=== PATIENT | male | born 1955 | race Two or more races ===

== ENCOUNTER 2017-02-03 15:07 | Inpatient (IN) | payer SELFPAY ==
[~2017-02-03] VITALS: Ht 162.6 cm; Wt 66.7 kg
--- NOTE | ~2017-02-03 | DS ---
Unit #: [id number] #: [id number] Patient: CHINEDU ANTOINE [id number] [address] [address] [id number] I MR#: [id number] NAME: CHINEDU ANTOINE ROOM: 237 Age: 61 Sex: M Admission Date: 02/03/2017 : 1955 Discharge Date: 02/06/2017 Attending Physician: Tevin Mckeon M.D. Primary Care Physician: No Primary Care Physician DISCHARGE SUMMARY PRIMARY DIAGNOSES 1. Acute on chronic pancreatitis. 2. Diabetes mellitus type 2 with a pending hemoglobin A1C at the time of discharge. 3. Hyponatremia, mild. 4. Thrombocytopenia, mild. 5. Leukocytosis, not felt to be clinically significant at this time. 6. Dehydration, resolved. 7. Gallstones on imaging, not felt to be related to the patient's pancreatitis episodes. HOSPITAL COURSE Patient was admitted to the hospital, was seen in consultation with Dr. Valle with gastroenterology. Patient had imaging with a CT of the abdomen and pelvis, as well as an ultrasound of the gallbladder. Patient's lipase, at its highest, was 66 and trended down to 40 with conservative treatment. His CT scan, however, was markedly abnormal, as was his clinical exam suggesting that this patient could have fairly significant episodes of pancreatitis without as much elevation in lipase as might be expected in somebody who had not had multiple previous episodes. Gastroenterology has recommended that the patient eventually get endoscopic ultrasound with consideration of possible biopsy if needed, as well as a repeat CT scan in 4-6 weeks and close outpatient followup if possible. All of this may be difficult to impossible, as the patient is self pay. I have asked my office to attempt to get the patient referred to [facility] gastroenterology clinic to be seen some time in the next few months. DISCHARGE DISPOSITION Discharge disposition is to home. DISCHARGE DIET Discharge diet is a low-fat, diabetic diet. DISCHARGE ACTIVITY Discharge activity is ad sandeep. DISCHARGE STATUS Discharge status is stable. DISCHARGE FOLLOWUP Discharge followup is with [facility] 4 weeks and follow up with Unit #: [id number] #: [id number] Patient: CHINEDU ANTOINE [facility] in 4 to 8 weeks. DISCHARGE MEDICATIONS 1. Protonix 40 mg p.o. daily. 2. Lortab 5/325 - 1 tablet p.o. q.6 hours p.r.n. pain. 3. Metformin, unknown dose, unknown frequency. He may resume his metformin. Dictated by... Tevin Mckeon M.D. REBECCA/ulysses TD: 02/07/2017 08:15 JOB #: [id number] DISCHARGE SUMMARY Page 1 of 1 X Tevin Mckeon MD X DISCHARGE SUMMARY
--- NOTE | ~2017-02-03 | HP ---
Unit #: [id number] #: [id number] Patient: CHINEDU ANTOINE [id number] [address] [address] [id number] I MR#: [id number] NAME: CHINEDU ANTOINE ROOM: 22347 Age: 61 Sex: M Admission Date: 02/03/2017 : 1955 Attending Physician: Reyna Baker M.D. Primary Care Physician: No Primary Care Physician HISTORY AND PHYSICAL CHIEF COMPLAINT Acute on chronic pancreatitis. HISTORY This pleasant 61-year-old male from [place] with AODM, chronic gastritis, is admitted for acute on chronic pancreatitis. Patient states that while in [place] he was diagnosed with gastritis. He states that he was well until 2 days prior to admission when he developed nausea and vomiting with generalized abdominal pain. The abdominal pain was mainly in the upper abdomen radiating to his back. He states that his pain felt similar to his previously diagnosed gastritis. He does drink beer on the weekends but denies a history of excessive alcohol abuse. No previous known history of pancreatitis. Presented to this emergency department tonight where his pancreatic enzymes are mildly elevated. CT scan performs shows acute on chronic pancreatitis with extensive calcification and pseudocyst formation. There was a density noted in the gallbladder as well. He was bolused with IV fluids, given a GI cocktail, Pepcid and then Phenergan and morphine. PAST MEDICAL HISTORY 1. AODM. 2. History of gastritis diagnosed in [place]. ALLERGIES None. HOME MEDICATIONS Metformin. FAMILY HISTORY Negative for pancreatic or gallbladder disease. SOCIAL HISTORY The patient is originally from [place]. He is living with his family. He is a lifelong nonsmoker, does drink beer on the weekends but denies excessive alcohol consumption or history of alcohol abuse. REVIEW OF SYSTEMS Somewhat difficult to obtain due to language barrier. [employer] via our phone service was utilized. PHYSICAL EXAMINATION GENERAL: Pleasant, thin, 61-year-old male, currently in no acute Unit #: [id number] #: [id number] Patient: CHINEDU ANTOINE distress. VITAL SIGNS: Temperature 98.8, pulse 93, respirations 16, blood pressure 142/85. O2 saturation is 100% on room air. HEENT: Eyes PERRLA. Extraocular muscles are intact. Pharynx is benign with poor dentition. NECK: Supple without adenopathy or thyromegaly. CHEST: Clear. CARDIAC: Normal S1 and S2 without S3, S4 or murmur. ABDOMEN: Bowel sounds are present. Patient had upper abdominal pain, mainly in the epigastric area but also in the left and right upper quadrants without rebound, guarding. No definite hepatosplenomegaly or masses. EXTREMITIES: Without C, C or E. Pedal pulses are present. NEUROLOGIC EXAM: Patient is awake, alert, oriented. Cranial nerves are intact. Equal strength throughout. DIAGNOSTIC STUDIES LABORATORY: Admission labs - hematocrit is 50.1, white blood count is 13.4, normal platelet count. SMA-12 - glucose is 304, BUN 27, sodium 130, chloride 89, protein is 9. Amylase 94, lipase is 66. Urinalysis - 2+ protein, positive glucose. IMAGING: CT scan - acute on chronic pancreatitis with extensive calcification and pseudocyst formation. Gallbladder density noted. ASSESSMENT 1. Acute on chronic pancreatitis. Patient states that he was diagnosed with gastritis in [place] but has no known diagnosis in the past of pancreatitis. Denies heavy alcohol consumption. 2. AODM with hyperglycemia. 3. Mild dehydration. PLANS 1. Aggressive IV fluids and supportive treatment. 2. H2 blockers. 3. Sliding scale insulin. 4. Obtain gallbladder ultrasound and triglyceride levels along with repeat labs in the morning. 5. GI to see in consultation. 6. SCDs for DVT prophylaxis. Dictated by Jean Marie Morales/braulio TD: 02/04/2017 05:00 JOB #: [id number] Unit #: [id number] #: [id number] Patient: DEEPTHI MCCOYCHINEDU HISTORY AND PHYSICAL Page 1 of 1 X Reyna Baker MD HISTORY AND PHYSICAL
--- NOTE | ~2017-02-03 | CT4 ---
[facility] A Service of [facility] & [facility] RADIOLOGY TEXT RESULTS PATIENT: CHINEDU ANTOINE LOCATION: A 237- : 53 UNIT #: [id number] AGE: [address]: Tevin cMkeon MD SEX: M ORDER DR: [id number] [place], [place] [address] [id number] I MR#: [id number] Acc #: [id number] NAME: CHINEDU ANTOINE : 1955 SEX: M STUDY DATE/TIME: 02/03/2017 20:23 UNIT: [facility] ROOM: [facility] STUDY DESCRIPTION: CT Abd and Pelv Wo Cont Attending Physician: Tevin Mckeon M.D. Ordering Physician: Krishna Griffiths M.D. Primary Care Physician: No Primary Care Physician MEDICAL IMAGING REPORT This report is preliminary unless electronic signature is present EXAM CT abdomen and pelvis without contrast. HISTORY Vomiting since yesterday. History of chronic gastritis. Complains of epigastric pain. TECHNIQUE Axial images were performed through the abdomen and pelvis without contrast. Multiplanar reconstructed images were reviewed. This CT exam was performed with one or more of the following radiation dose reduction techniques: automatic exposure control, adjustment of mA and/or kV according to patient size, and iterative reconstruction. FINDINGS ABDOMEN: The lung bases unremarkable. The liver, spleen, and gallbladder appear normal. Pancreas is abnormal with diffuse pancreatic enlargement and peripancreatic inflammatory changes, as well as scattered coarse calcifications suggesting chronic pancreatitis. Several areas of decreased attenuation are seen within the pancreas, probably representing areas of pseudocyst formation. Questionable mild pancreatic ductal dilatation, though anatomic detail somewhat limited. No definite acute peripancreatic fluid collections. Probable pseudocyst with calcifications, tail of the pancreas. This measures up to 1.6 cm. Kidneys demonstrate bilateral renal cortical cysts. The adrenal glands are unremarkable. The stomach is moderately fluid distended. Small bowel and colon unremarkable. The appendix is normal. There are a few scattered colonic diverticula. PELVIS: Bladder and prostate appear normal. Osseous structures and extra abdominal soft tissues appear normal. [facility] A Service of [facility] & [facility] RADIOLOGY TEXT RESULTS PATIENT: CHINEDU ANTOINE LOCATION: [facility] 237- : 53 UNIT #: [id number] AGE: [address]: Tevin Mckeon MD SEX: M ORDER DR: IMPRESSION 1. Abnormal CT of the abdomen and pelvis demonstrating changes most compatible with acute on chronic pancreatitis with extensive pancreatic calcifications and multiple foci of decreased attenuation within the pancreas, most likely representing areas of pseudocyst formation, the largest seen in the tail of pancreas measuring about 1.6 cm. There is some mild peripancreatic inflammatory changes, again supporting acute on chronic pancreatitis. No evidence of ductal obstruction. 2. Not mentioned above is a small amount of density seen in the dependent portion of gallbladder suggesting small gallstones, but I doubt that this represents gallstone pancreatitis, as the patient has clearly evidence of more longstanding chronic pancreatitis. Dictated by... Rebeka Trevino M.D. THIS IS AN ELECTRONICALLY VERIFIED REPORT Rebeka Trevino M.D. at 02/05/2017 3:15 PM Sis TD: 02/04/2017 11:44 JOB #: [id number] MEDICAL IMAGING REPORT Page 1 of 1 COPY
--- NOTE | ~2017-02-03 | US67 ---
[facility] A Service of [facility] RADIOLOGY TEXT RESULTS PATIENT: CHINEDU ANTOINE LOCATION: [facility] : 53 UNIT #: [id number] AGE: [address]: Tevin Mckeon MD SEX: M ORDER DR: [id number] [place], [place] [address] [id number] I MR#: [id number] Acc #: [id number] NAME: CHINEDU ANTOINE : 1955 SEX: M STUDY DATE/TIME: 02/04/2017 8:43 UNIT: [facility] ROOM: [facility] STUDY DESCRIPTION: US Gallbladder Attending Physician: Tevin Mckeon M.D. Ordering Physician: Aye Foley Primary Care Physician: Primary Care Physician No MEDICAL IMAGING REPORT This report is preliminary unless electronic signature is present EXAM Gallbladder ultrasound 02/04/2017 HISTORY Two day history of right upper quadrant pain. Diabetes. FINDINGS Limited survey images of the pancreas are unremarkable. There appears to be fatty infiltration of the liver but there is no liver mass or intrahepatic biliary ductal dilatation. The right kidney is of normal in appearance with the exception of an about 12 mm parapelvic cyst. There are several small stones and/or sludge in the gallbladder but there is no wall thickening or pericholecystic fluid. IMPRESSION 1. Cholelithiasis without ultrasound evidence of cholecystitis or biliary obstruction. 2. Probable mild fatty infiltration of the liver. 3. 12 mm right renal parapelvic simple cyst, otherwise negative. Dictated by... John Mims M.D. THIS IS AN ELECTRONICALLY VERIFIED REPORT John Mims M.D. at 02/08/2017 7:32 AM TEV/pcl TD: 02/04/2017 17:50 JOB #: [id number] MEDICAL IMAGING REPORT [facility] A Service of [facility] RADIOLOGY TEXT RESULTS PATIENT: CHINEDU ANTOINE LOCATION: [facility] : 53 UNIT #: [id number] AGE: [address]: Tevin Mckeon MD SEX: M ORDER DR: Page 1 of 1 COPY
[2017-02-03 16:02] LABS: URINE SOURCE CLEAN CATCH
[2017-02-03 16:11] LABS: URINE APPEARANCE CLEAR; URINE BILIRUBIN NEG (NEG); URINE BLOOD NEG (NEG); URINE COLOR DK YELLOW; URINE GLUCOSE >1000 MG/DL (NEG); URINE KETONE 2+ (NEG); URINE LEUKOCYTE ESTERASE NEG (NEG); URINE NITRATE NEG (NEG); URINE PROTEIN 2+ (NEG); URINE SPECIFIC GRAVITY 1.047 (1.003-1.035)
[2017-02-03 16:14] LABS: URBCS1 AUWI 0-2 /[HPF] (0-2); URINE BACTERIA AUWI NEG (NEGATIVE); URINE SQUAMOUS EPITHELIAL CELL NONE SEEN /[HPF]; UWBCS1 AUWI 0-2 (0-5)
[2017-02-03 16:19] LABS: CULTURE INDICATED? NO
[2017-02-03 20:28] LABS: BASOPHIL# 0.1 X10e3 (0-0.3); BASOPHIL% 0.4 % (0-2.5); HEMATOCRIT 50.1 % (38.0-50.0); HEMOGLOBIN 16.2 gm/dL (13.0-16.0); LYMPHOCYTE% 7.2 % (17.0-45.0); MEAN CELL VOLUME 88.6 FL (83-96); MEAN CORPUSCULAR HEMOGLOBIN 28.6 PG (28-34); MEAN CORPUSCULAR HGB CONC 32.3 g/dL (30-36); MEAN PLATELET VOLUME 10.3 FL (6.5-11.5); MONOCYTE# 1.1 X10e3 (0-1.0); MONOCYTE% 8.1 % (3.0-12.0); NEUTROPHIL# 11.3 X10e3 (1.5-7.1); NEUTROPHIL% 84.3 % (40-75); PLATELET COUNT 142 X10e3 (140-420); RED BLOOD COUNT 5.66 X10e (3.90-5.60); RED CELL DISTRIBUTION WIDTH 12.2 % (11.0-15.5); WHITE BLOOD COUNT 13.4 X10e3 (4.0-10.5)
[2017-02-03 20:31] LABS: DIFF IND NO
[2017-02-03 20:54] LABS: ALBUMIN SERUM 4.6 g/dL (3.5-5.0); BILIRUBIN, DIRECT 0.2 mg/dL (0.0-0.2); BILIRUBIN,INDIRECT 1.1 mg/dL (0.0-0.9); BILIRUBIN,TOTAL 1.3 mg/dL (0.2-2.0); BUN/CREATININE RATIO 38.57; CALCIUM SERUM 9.9 mg/dL (8.4-10.2); CREATININE SERUM 0.7 mg/dL (0.6-1.4); GLOM FILT RATE Estimated 100.5 mL/min (>60); POTASSIUM 4.5 mmol/L (3.5-5.1)
[2017-02-04 05:52] LABS: BASOPHIL% 0.3 % (0-2.5); EOSINOPHIL# 0.1 X10e3 (0-0.7); EOSINOPHIL% 0.6 % (0.0-7.0); HEMATOCRIT 43.3 % (38.0-50.0); LYMPHOCYTE# 1.1 X10e3 (1.0-3.5); LYMPHOCYTE% 10.1 % (17.0-45.0); MEAN CELL VOLUME 88.1 FL (83-96); MEAN CORPUSCULAR HGB CONC 32.9 g/dL (30-36); MEAN PLATELET VOLUME 9.4 FL (6.5-11.5); MONOCYTE% 9.8 % (3.0-12.0); NEUTROPHIL# 8.4 X10e3 (1.5-7.1); NEUTROPHIL% 79.2 % (40-75); PLATELET COUNT 115 X10e3 (140-420); RED BLOOD COUNT 4.91 X10e (3.90-5.60); WHITE BLOOD COUNT 10.6 X10e3 (4.0-10.5)
[2017-02-04 06:26] LABS: DIFF IND NO; HEMOGLOBIN 14.2 gm/dL (13.0-16.0)
[2017-02-04 06:31] LABS: BUN/CREATININE RATIO 33.33; CALCIUM SERUM 8.6 mg/dL (8.4-10.2); CREATININE SERUM 0.6 mg/dL (0.6-1.4); POTASSIUM 3.8 mmol/L (3.5-5.1)
[2017-02-04] MEDS ORDERED: METFORMIN (07:50)
[2017-02-05 06:29] LABS: HEMATOCRIT 42.3 % (38.0-50.0); HEMOGLOBIN 13.9 gm/dL (13.0-16.0); MEAN CELL VOLUME 88.9 FL (83-96); MEAN CORPUSCULAR HEMOGLOBIN 29.2 PG (28-34); MEAN CORPUSCULAR HGB CONC 32.8 g/dL (30-36); MEAN PLATELET VOLUME 9.8 FL (6.5-11.5); RED BLOOD COUNT 4.76 X10e (3.90-5.60); RED CELL DISTRIBUTION WIDTH 11.6 % (11.0-15.5); WHITE BLOOD COUNT 10.1 X10e3 (4.0-10.5)
[2017-02-05 07:23] LABS: ALBUMIN SERUM 3.3 g/dL (3.5-5.0); BILIRUBIN,TOTAL 1.3 mg/dL (0.2-2.0); CALCIUM SERUM 8.4 mg/dL (8.4-10.2); CREATININE SERUM 0.6 mg/dL (0.6-1.4); POTASSIUM 3.6 mmol/L (3.5-5.1); PROTEIN TOTAL SERUM 6.8 g/dL (6.0-8.3)
[2017-02-05 07:58] LABS: C-REACTIVE PROTEIN 20.5 mg/dl (0-0.9)
[2017-02-06 08:09] LABS: HEMATOCRIT 38.8 % (38.0-50.0); HEMOGLOBIN 12.8 gm/dL (13.0-16.0); MEAN CELL VOLUME 87.9 FL (83-96); MEAN PLATELET VOLUME 9.3 FL (6.5-11.5); RED BLOOD COUNT 4.41 X10e (3.90-5.60); RED CELL DISTRIBUTION WIDTH 11.8 % (11.0-15.5); WHITE BLOOD COUNT 11.7 X10e3 (4.0-10.5)
[2017-02-06] MEDS ORDERED: LORTAB 5-325 M1 EACH PO (10:16)
[2017-02-06] MEDS ORDERED: PROTONIX PO (10:16)
== END 2017-02-06 10:48 | disposition home or self-care (01) | DRG 440 ==
LOC: CED 15:07 → CEDOF 22:37 → CED 22:37 → CEDOF 22:40 → C2A 02-04 07:35 → CEDOF 02-04 07:35 → C2A 02-04 09:32
PROVIDERS: Emergency Medicine; Internal Medicine
DX: K85.90 Acute pancreatitis without necrosis or infection, unspecified (principal); D69.6 Thrombocytopenia, unspecified; E11.65 Type 2 diabetes mellitus with hyperglycemia; K86.1 Other chronic pancreatitis; R49.22 Hyponasality; E86.0 Dehydration; Z79.84 Long term (current) use of oral hypoglycemic drugs; K80.80 Other cholelithiasis without obstruction
CPT/HCPCS: 36415; 74176; 76705; 80048; 80053; 80076; 81003; 82150; 82378; 82947; 83036; 83690; 84478; 85025; 85027; 86140; 86301; 96372; 99285; J1815; J2270; J2405; J2550